=== PATIENT | female | born 1975 | race Asian ===

== ENCOUNTER 2025-01-03 10:59 | Emergency (ER) | payer OTHER ==
[2025-01-03 11:09] VITALS: TEMP 97.8; BMI 21.5
[2025-01-03 12:35] LABS: ABSOLUTE IMMATURE GRANULOCYTES 0.01 x10^3/uL (0.0-0.031); BASOPHILS # 0.02 x10^3/uL (0.01-0.08); EOSINOPHILS # 0.13 x10^3/uL (0.04-0.36); HEMATOCRIT 43.9 % (34.1-44.9); MCHC 31.9 g/dl (32.2-35.5); MEAN CELL VOLUME 81.9 fl (79.4-94.8); MEAN PLT VOLUME 11.7 fl (9.4-12.3); MONOCYTE # 0.23 x10^3/uL (0.24-0.86); MONOCYTE % 3.6 % (4.7-12.5); PLATELET COUNT # 212 x10^3/uL (182-369); RDW 12.3 % (12.2-17.1)
[2025-01-03] MEDS: SODIUM CHLORIDE 0.9% 500 ML INFUS.BAG IV ONE (12:37)
[2025-01-03 12:42] LABS: VENOUS BASE EXCESS -1.4 mmol/L (-2-2); VENOUS O2 SATURATION 64.9 % (70-80); VENOUS PCO2 49.8 mmHg (38-52); VENOUS PH 7.323 (7.310-7.410)
[2025-01-03 12:49] LABS: INR 0.95 (0.83-1.09); PROTHROMBIN TIME (PATIENT) 10.4 SEC (9.7-13.0)
[2025-01-03 13:02] LABS: POTASSIUM 4.1 mmol/L (3.5-5.1)
[2025-01-03 13:04] LABS: ALBUMIN 3.8 g/dl (3.4-5.0); CALCIUM 9.4 mg/dL (8.5-10.1)
[2025-01-03 13:05] LABS: BLOOD UREA NITROGEN 12.4 mg/dL (7-18)
[2025-01-03 13:08] LABS: CREATININE 0.7 mg/dL (0.55-1.3)
[2025-01-03 13:09] LABS: BILIRUBIN,TOTAL 0.6 mg/dL (0.2-1); TOT PROT 7.5 g/dl (6.4-8.2)
[2025-01-03 13:39] LABS: PH,URINE 5.5 (5.0-8.0); URINE APPEARANCE CLEAR; URINE BILIRUBIN NEGATIVE (NEGATIVE); URINE COLOR YELLOW; URINE GLUCOSE (UA) 3+ (NEGATIVE); URINE KETONE 1+ (NEGATIVE); URINE LEUK ESTERASE NEGATIVE (NEGATIVE); URINE NITRITE NEGATIVE (NEGATIVE); URINE PROTEIN NEGATIVE (NEGATIVE); URINE UROBILINOGEN 0.2 mg/dL (0.2-1.0)
[2025-01-03 14:00] LABS: HCV DIAGNOSTIC IN-HOUSE W/RFLX NON-REACTIVE (NONREACTIVE)
[2025-01-03 14:01] LABS: HIV INTERPRETATION NEGATIVE (NEGATIVE)
[2025-01-03 14:45] VITALS: BP 137/79; PULSE 72; RESP 18
== END 2025-01-03 15:08 | disposition home or self-care (01) ==
LOC: JER 10:59
DX: E11.65 Type 2 diabetes mellitus with hyperglycemia (principal); E07.89 Other specified disorders of thyroid; R06.02 Shortness of breath
CPT/HCPCS: 36415; 71046-TC-FY; 80053; 81003; 82010; 82803; 82962; 83735; 84484; 85025; 85610; 85730; 86803; 87077; 87086; 87389; 93005; 93010; 99285-25